=== PATIENT | male | born 1995 | race Hispanic/Latino ===

== ENCOUNTER 2019-08-27 18:48 | Inpatient (IN) | payer MEDICARE ==
[~2019-08-27] VITALS: Ht 152.4 cm; Wt 53.0 kg
[2019-08-27 19:12] LABS: APPEARANCE,URINE Clear (CLEAR); BILIRUBIN,URINE Negative (NEGATIVE); COLOR,URINE Yellow (YELLOW); GLUCOSE, URINE (UA) Negative (NEGATIVE); KETONES,URINE Trace mg/dL (NEGATIVE); LEUKOCYTE ESTERASE ,URINE Negative (NEGATIVE); NITRATE,URINE Negative (NEGATIVE); OCCULT BLOOD,URINE Negative (NEGATIVE); PROTEIN,URINE Negative (NEGATIVE)
[2019-08-27] MEDS ORDERED: LIDOCAINE HCL 2% VISCOUS 15 ML UDCUP ONE (20:08)
[2019-08-27] MEDS ORDERED: FAMOTIDINE/PF 20 MG/2 ML VIAL IV ONE (20:08)
[2019-08-27] MEDS ORDERED: MAG HYDROX/AL HYDROX/SIMETH ES 30 ML SUSP UDCUP ONE (20:08)
[2019-08-27 20:48] LABS: BASOPHILS % (AUTO) 0.2 % (0.0-5.0); EOSINOPHILS % (AUTO) 0.1 % (0.0-8.0); LYMPHOCYTES % (AUTO) 9.9 % (21.0-51.0); MEAN CORPUSCULAR HEMOGLOBIN 32.5 pg (27.0-33.0); MEAN CORPUSCULAR HGB CONC 34.5 g/dL (32.0-36.0); MEAN CORPUSCULAR VOLUME 94.3 fL (79-99); MONOCYTES % (AUTO) 5.5 % (3.0-13.0); PLATELET COUNT (AUTO) 159 K/uL (130-400); RED BLOOD CELL COUNT(AUTO) 5.41 MIL/uL (4.50-6.20); RED CELL DISTRIBUTION WIDTH 12.5 % (11.0-15.5); WHITE BLOOD COUNT (AUTO) 11.8 K/uL (4.8-10.8)
[2019-08-27 20:59] LABS: CREATININE 1.2 mg/dL (0.5-1.5); POTASSIUM 3.4 mmol/L (3.5-5.1)
[2019-08-27 21:04] LABS: ALBUMIN 4.6 g/dL (3.5-5.0); BILIRUBIN,TOTAL 0.9 mg/dL (0.2-1.0); TOTAL PROTEIN, SERUM 8.4 g/dL (6.0-8.3)
[2019-08-27] MEDS ORDERED: ONDANSETRON HCL 4 MG/2 ML VIAL ONE (21:46)
[2019-08-27] MEDS ORDERED: MORPHINE SULFATE 4 MG/1ML SYG ONE (21:47)
[2019-08-27] MEDS ORDERED: IOHEXOL-350 75 ML VIAL IV ONE (22:00)
[2019-08-28] VITALS (7 sets, daily range): BP systolic 112–133; BP diastolic 59–87
[2019-08-28] MEDS: LACTATED RINGERS 1000ML 1,000 ML IV SCH ×4 (00:30→23:30)
[2019-08-28] MEDS ORDERED: LACTATED RINGERS 1000ML IV SCH (00:30)
[2019-08-28] MEDS ORDERED: NITROGLYCERIN 0.4 MG SL TAB SL PRN (00:45)
[2019-08-28] MEDS ORDERED: POTASSIUM CHLORIDE 10MEQ/100ML 10 MEQ/100 ML ML IV SCH (00:45)
[2019-08-28] MEDS ORDERED: DIPHENHYDRAMINE HCL 25 MG CAPSULE PO PRN (00:45)
[2019-08-28] MEDS ORDERED: ACETAMINOPHEN 325 MG TAB PO PRN ×2 (00:45)
[2019-08-28] MEDS ORDERED: POTASSIUM CHLORIDE 10MEQ/100ML 100 ML IV ONE (01:19)
[2019-08-28] MEDS ORDERED: LACTATED RINGERS 1000ML 1,000 ML IV ONE ×2 (02:18→03:26)
--- NOTE | 2019-08-28 02:24 | NUR ---
ADMIT PT ADMITTED TO ROOM 305, AA AND CONVERSANT, ORIENTED. PT HAS DOWN'S SYNDROME. MOTHER WILL BE STAYING WITH PT. ADMISSION CARE DONE. ADMISSION DATA BASE COMPLETED BY MILTON FERRELL, PT'S MOTHER IS [place] SPEAKING ONLY. STARTED ON IVF OF LR BOLUS DRIP. CONTINUED POTASSIUM IV FROM ER. IN FOR MORE CARE AND MANAGEMENT. Addendum: 08/28/19 at 0342 by MAKI SAN RN RN Amended: Links added.
[2019-08-28] MEDS ORDERED: PHOS118S25 PO (02:45)
[2019-08-28] MEDS ORDERED: ENAL5TAB PO (02:45)
[2019-08-28] MEDS ORDERED: PSYL660P17 PO (02:45)
--- NOTE | 2019-08-28 05:00 | NUR ---
SCAN AWAKENED PT AND PT'S MOTHER. EXPLAINED THAT BLADDER SCAN WILL BE DONE. SCANNED 541CC ON MACHINE. EXPLAINED THAT PT NEEDED TO URINATE. PT'S MOTHER ASSISTED PT AND USED THE URINAL. PT URINATED 500CC. VHIC, WOOL GRADER CALLED AND REPORTED FINDING OF BLADDER SCAN.
[2019-08-28 06:05] LABS: HEMATOCRIT 46.1 % (42-54); MEAN CORPUSCULAR HEMOGLOBIN 32.2 pg (27.0-33.0); MEAN CORPUSCULAR HGB CONC 34.1 g/dL (32.0-36.0); MEAN CORPUSCULAR VOLUME 94.7 fL (79-99); PLATELET COUNT (AUTO) 141 K/uL (130-400); RED BLOOD CELL COUNT(AUTO) 4.87 MIL/uL (4.50-6.20); RED CELL DISTRIBUTION WIDTH 12.5 % (11.0-15.5); WHITE BLOOD COUNT (AUTO) 5.6 K/uL (4.8-10.8)
[2019-08-28 06:53] LABS: ALBUMIN 3.6 g/dL (3.5-5.0); BILIRUBIN,TOTAL 0.8 mg/dL (0.2-1.0); MAGNESIUM 1.7 mg/dL (1.80-2.40); POTASSIUM 3.9 mmol/L (3.5-5.1); TOTAL PROTEIN, SERUM 6.8 g/dL (6.0-8.3)
[2019-08-28 08:28] LABS: EOSINOPHILS % (MANUAL) 3 % (1-6); LYMPHOCYTES % (MANUAL) 19 % (22-44); MAN.DIFF COMMENT-IMPRESSION MANUAL DIFFERENTIAL; MONOCYTES % (MANUAL) 4 % (2-9); PLATELET MORPHOLOGY COMMENT ADEQUATE; SEGMENTED NEUTROPHILS % 74 % (40-70)
[2019-08-28] MEDS: FAMOTIDINE/PF 20 MG/2 ML VIAL IV SCH ×2 (08:58→20:08)
[2019-08-28] MEDS: ENOXAPARIN SODIUM 30 MG/0.3 ML SQ SCH (09:03)
--- NOTE | 2019-08-28 09:17 | NUR ---
CHART CHECK COMPLETED. Pt IS A 24 Y.O. MALE ADMITTED SECONDARY TO ACUTE PANCREATITIS. 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 Pt CURRENTLY NPO DUE TO ADMITTING DIAGNOSIS. PLEASE REQUEST FORMAL SWALLOW EVALUATION IF Pt PRESENTS WITH +S/S OF ASPIRATION SUCH COUGHING, CHOCKING, THROAT CLEAR, WET VOCAL QUALITY DURING MEAL TIMES. -ADMISSION CHART CHECK COMPLETED. Addendum: 08/28/19 at 0922 by TAMI RUDD [facility] Amended: Links added.
--- NOTE | 2019-08-28 17:00 | NUR ---
MET W PATIENT AND MOM AT BEDSIDE FOR DC PLANNING PATIENT LIVES WITH PARENTS, NEEDS ASSISTANCE W ADLS SECOND TO DOWN SYNDROME, IS MOBILE WITHOUT ANY DME, HAS PROVIDER SERVICES 3 HRS/DAY. DCP IS HOME Addendum: 08/28/19 at 1702 by MARY EATON RN CM Amended: Links added.
[2019-08-28] MEDS ORDERED: MAGNESIUM 2GM PREMIX 50ML 50 ML IV SCH (18:30)
--- NOTE | 2019-08-28 20:10 | NUR ---
MEDS PT RESTING IN BED. SHIFT ASSESSMENT DONE, PLEASE REFER TO CHART. DUE MEDS ADMINISTERED, TOLERATED WELL. KEPT RESTED AND COMFORTABLE. PT'S MOTHER AT BEDSIDE IN ATTENDANCE TO NEEDS AT THIS TIME. WILL CONTINUE TO MONITOR. Addendum: 08/28/19 at 2241 by MAKI SAN RN RN Amended: Links added.
--- NOTE | 2019-08-28 22:20 | NUR ---
SHOWER PT JUST HAD HIS SHOWER, TOLERATED ACTIVITY WELL. LAB CALLED AND INFORMED ORGAN GRINDER OF PENDING UDS. URINE COLLECTED THEN SENT TO LAB FOR ANALYSIS. PLACED PT BACK ON IVF. WILL MONITOR PT.
[2019-08-28 22:33] LABS: APPEARANCE,URINE Clear (CLEAR); BILIRUBIN,URINE Negative (NEGATIVE); COLOR,URINE Yellow (YELLOW); GLUCOSE, URINE (UA) Negative (NEGATIVE); KETONES,URINE 40 mg/dL (NEGATIVE); LEUKOCYTE ESTERASE ,URINE Negative (NEGATIVE); NITRATE,URINE Negative (NEGATIVE); OCCULT BLOOD,URINE Negative (NEGATIVE); PH,URINE 6.5 (5.0-8.0); PROTEIN,URINE Negative (NEGATIVE); UROBILINOGEN,URINE 0.2 mg/dL (0.2-1.0)
[2019-08-28 22:40] LABS: AMPHET/METH SCREEN,URINE NEGATIVE (NEGATIVE); BARBITURATE SCREEN, URINE NEGATIVE (NEGATIVE); BENZODIAZEPINES SCREEN,URINE NEGATIVE (NEGATIVE); CANNABINOID SCREEN,URINE NEGATIVE (NEGATIVE); COCAINE SCREEN,URINE NEGATIVE (NEGATIVE); OPIATE SCREEN,URINE NEGATIVE (NEGATIVE); PHENCYCLIDINE SCREEN,URINE NEGATIVE (NEGATIVE)
--- NOTE | 2019-08-29 02:00 | NUR ---
ROUNDS PT FAIRLY ASLEEP WITH RESPIRATIONS EVEN AND UNLABORED. NO NOTED DISTRESS. KEPT UNDISTURBED FOR NOW. WILL MONITOR PT. PT'S MOTHER ASLEEP AT BEDSIDE.
[2019-08-29 04:00] VITALS: BP 120/62
[2019-08-29] MEDS: LACTATED RINGERS 1000ML 1,000 ML IV SCH ×2 (04:26→09:37)
--- NOTE | 2019-08-29 05:07 | NUR ---
VINCENT CROCKER GAVE PT A BED BATH, TOLERATED ACTIVITY WELL. SALES MANAGEMENT INTERN IN TO DRAW BLOOD. PT VERY COOPERATIVE AT THIS TIME. STILL NO BM UP TO NOW DESPITE LACTULOSE GIVEN LAST NIGHT. FOR MORE CARE. Addendum: 08/29/19 at 0511 by MAKI SAN RN RN ERROR ENTRY
--- NOTE | 2019-08-29 05:11 | NUR ---
ROUNDS PT RESTING WELL, SLEPT AT LONG INTERVALS. NO DISTRESS NOTED. NO COMPLAINTS VERBALIZED. KEPT COMFORTABLE. FOR MORE CARE.
[2019-08-29 05:58] LABS: BASOPHILS % (AUTO) 0.4 % (0.0-5.0); EOSINOPHILS % (AUTO) 0.8 % (0.0-8.0); HEMATOCRIT 47.2 % (42-54); LYMPHOCYTES % (AUTO) 14.8 % (21.0-51.0); MEAN CORPUSCULAR HGB CONC 34.7 g/dL (32.0-36.0); MONOCYTES % (AUTO) 8.3 % (3.0-13.0); NEUTROPHILS % (AUTO) 75.5 % (40.0-77.0); PLATELET COUNT (AUTO) 152 K/uL (130-400); RED BLOOD CELL COUNT(AUTO) 4.97 MIL/uL (4.50-6.20); RED CELL DISTRIBUTION WIDTH 12.3 % (11.0-15.5); WHITE BLOOD COUNT (AUTO) 5.1 K/uL (4.8-10.8)
[2019-08-29 06:41] LABS: ALBUMIN 3.8 g/dL (3.5-5.0); BILIRUBIN,TOTAL 1.3 mg/dL (0.2-1.0); CREATININE 0.9 mg/dL (0.5-1.5); MAGNESIUM 2.2 mg/dL (1.80-2.40); POTASSIUM 3.6 mmol/L (3.5-5.1)
[2019-08-29 07:14] LABS: HEPATITIS A ANTIBODY IGM Negative (Negative); HEPATITIS B CORE IGM Negative (Negative); HEPATITIS Bs ANTIGEN SCREEN P Negative (Negative)
[2019-08-29 08:00] VITALS: BP_SYST 103; BP_SYST 133; BP_DIAS 62; BP_DIAS 75
[2019-08-29] MEDS ORDERED: LIDOCAINE HCL-MPF 1% 2ML VIAL IV PRN ×2 (08:30)
[2019-08-29] MEDS ORDERED: POTASSIUM CHLORIDE 20MEQ/100ML 100 ML IV PRN ×2 (08:30)
[2019-08-29] MEDS ORDERED: POTASSIUM CHLORIDE 10% ELIXIR 20 MEQ/15 ML UDCUP PO PRN (08:30)
--- NOTE | 2019-08-29 08:47 | NUR ---
Called Derrell Chambers CRNA again regarding discontinuing epidural, Left message on mobile. Addendum: 08/29/19 at 0849 by SERVANDO WILLIAM RN RN Please disregard, wrong patient.
[2019-08-29] MEDS: POTASSIUM CHLORIDE 20 MEQ ERTAB PO PRN ×2 (09:36→11:19)
[2019-08-29] MEDS: FAMOTIDINE/PF 20 MG/2 ML VIAL IV SCH ×2 (09:36→21:17)
[2019-08-29] MEDS: ENOXAPARIN SODIUM 30 MG/0.3 ML SQ SCH (09:37)
[2019-08-29 11:00] VITALS: BP 130/72
[2019-08-29 16:00] VITALS: BP 132/76
--- NOTE | 2019-08-29 21:20 | NUR ---
NAUSEA PT AND PT'S MOM REPORT THE PT IS NAUSEOUS AFTER PT ATE DINNER. C/O PIN TO RIGHT UQ. WILL PROVIDE APPROPRIATE MEDICATIONS PER MAR. PT'S MOM AT BEDSIDE WITH PT. CALL LIGHT ON BEDSIDE TABLE WITHIN REACH.
[2019-08-29] MEDS: HYDROMORPHONE 1 MG/1 ML AMP IV PRN (21:24)
[2019-08-29] MEDS: ONDANSETRON HCL 4 MG/2 ML VIAL IV PRN (21:29)
--- NOTE | 2019-08-29 22:00 | NUR ---
ROUNDS PT ASLEEP IN BED. PT'S MOTHER AT BEDSIDE REPORTS PT CALMED DOWN AND FELL ASLEEP. OBSERVED RISE AND FALL OF CHEST. EVEN, UNLABORED RESPIRATIONS. BED LOCKED AND IN LOWEST POSITION. WILL CONTINUE TO MONITOR.
[2019-08-30] VITALS (7 sets, daily range): BP systolic 92–128; BP diastolic 53–71
[2019-08-30 05:38] LABS: BASOPHILS % (AUTO) 0.6 % (0.0-5.0); EOSINOPHILS % (AUTO) 1.2 % (0.0-8.0); HEMATOCRIT 46.8 % (42-54); LYMPHOCYTES % (AUTO) 15.8 % (21.0-51.0); MEAN CORPUSCULAR HEMOGLOBIN 32.7 pg (27.0-33.0); MEAN CORPUSCULAR HGB CONC 34.6 g/dL (32.0-36.0); MEAN CORPUSCULAR VOLUME 94.4 fL (79-99); MONOCYTES % (AUTO) 7.1 % (3.0-13.0); NEUTROPHILS % (AUTO) 74.9 % (40.0-77.0); PLATELET COUNT (AUTO) 162 K/uL (130-400); RED BLOOD CELL COUNT(AUTO) 4.96 MIL/uL (4.50-6.20); RED CELL DISTRIBUTION WIDTH 12.3 % (11.0-15.5); WHITE BLOOD COUNT (AUTO) 5.2 K/uL (4.8-10.8)
[2019-08-30 05:52] LABS: ALBUMIN 3.7 g/dL (3.5-5.0); BILIRUBIN,TOTAL 0.8 mg/dL (0.2-1.0); POTASSIUM 3.6 mmol/L (3.5-5.1); TOTAL PROTEIN, SERUM 6.8 g/dL (6.0-8.3)
[2019-08-30] MEDS: FAMOTIDINE/PF 20 MG/2 ML VIAL IV SCH ×2 (10:18→20:18)
[2019-08-30] MEDS: HYDROMORPHONE 1 MG/1 ML AMP IV PRN (14:20)
[2019-08-30] MEDS: ONDANSETRON HCL 4 MG/2 ML VIAL IV PRN (20:18)
[2019-08-31] VITALS (25 sets, daily range): BP systolic 81–136; BP diastolic 50–87
[2019-08-31 05:24] LABS: BASOPHILS % (AUTO) 0.5 % (0.0-5.0); EOSINOPHILS % (AUTO) 1.7 % (0.0-8.0); HEMATOCRIT 47.4 % (42-54); LYMPHOCYTES % (AUTO) 20.4 % (21.0-51.0); MEAN CORPUSCULAR HEMOGLOBIN 32.4 pg (27.0-33.0); MEAN CORPUSCULAR HGB CONC 34.6 g/dL (32.0-36.0); MEAN CORPUSCULAR VOLUME 93.7 fL (79-99); MONOCYTES % (AUTO) 7.9 % (3.0-13.0); NEUTROPHILS % (AUTO) 69.5 % (40.0-77.0); PLATELET COUNT (AUTO) 152 K/uL (130-400); RED BLOOD CELL COUNT(AUTO) 5.06 MIL/uL (4.50-6.20); RED CELL DISTRIBUTION WIDTH 12.4 % (11.0-15.5); WHITE BLOOD COUNT (AUTO) 4.1 K/uL (4.8-10.8)
[2019-08-31 05:49] LABS: ALBUMIN 3.6 g/dL (3.5-5.0); BILIRUBIN,TOTAL 0.8 mg/dL (0.2-1.0); POTASSIUM 3.9 mmol/L (3.5-5.1); TOTAL PROTEIN, SERUM 6.9 g/dL (6.0-8.3)
[2019-08-31] MEDS: FAMOTIDINE/PF 20 MG/2 ML VIAL IV SCH ×2 (09:49→21:47)
[2019-08-31] MEDS ORDERED: IOHEXOL-350 50ML VIAL IV ONE (10:34)
[2019-08-31] MEDS ORDERED: PROPOFOL 10 MG/ML 20ML VIAL IV ONE (11:50)
[2019-08-31] MEDS ORDERED: FENTANYL CITRATE PF 50 MCG/1 ML 2ML VIAL ONE (11:51)
[2019-08-31] MEDS ORDERED: MIDAZOLAM HCL 1 MG/ML 2ML VIAL ONE (11:51)
[2019-08-31] MEDS ORDERED: INDOMETHACIN 50 MG SUPP.RECT RC SCH (12:30)
[2019-08-31] MEDS: ONDANSETRON HCL 4 MG/2 ML VIAL IV PRN (14:54)
[2019-08-31] MEDS: LACTATED RINGERS 1000ML 1,000 ML IV SCH (14:55)
[2019-09-01] VITALS (7 sets, daily range): BP systolic 96–116; BP diastolic 51–74
[2019-09-01] MEDS: LACTATED RINGERS 1000ML 1,000 ML IV SCH ×3 (05:47→19:30)
[2019-09-01 05:51] LABS: BASOPHILS % (AUTO) 0.8 % (0.0-5.0); EOSINOPHILS % (AUTO) 1.1 % (0.0-8.0); HEMATOCRIT 45.8 % (42-54); LYMPHOCYTES % (AUTO) 26.2 % (21.0-51.0); MEAN CORPUSCULAR HEMOGLOBIN 33.1 pg (27.0-33.0); MEAN CORPUSCULAR HGB CONC 35.4 g/dL (32.0-36.0); MEAN CORPUSCULAR VOLUME 93.5 fL (79-99); MONOCYTES % (AUTO) 6.1 % (3.0-13.0); NEUTROPHILS % (AUTO) 65.5 % (40.0-77.0); PLATELET COUNT (AUTO) 148 K/uL (130-400); WHITE BLOOD COUNT (AUTO) 3.7 K/uL (4.8-10.8)
[2019-09-01] MEDS: HYDROMORPHONE 1 MG/1 ML AMP IV PRN (05:53)
[2019-09-01] MEDS: ONDANSETRON HCL 4 MG/2 ML VIAL IV PRN (05:53)
[2019-09-01 06:20] LABS: ALBUMIN 3.5 g/dL (3.5-5.0); BILIRUBIN,TOTAL 1.2 mg/dL (0.2-1.0); POTASSIUM 3.7 mmol/L (3.5-5.1); TOTAL PROTEIN, SERUM 6.4 g/dL (6.0-8.3)
[2019-09-01] MEDS: FAMOTIDINE/PF 20 MG/2 ML VIAL IV SCH ×2 (10:14→20:23)
[2019-09-02 03:41] VITALS: BP 112/70
[2019-09-02 05:32] LABS: BASOPHILS % (AUTO) 0.9 % (0.0-5.0); HEMATOCRIT 46.9 % (42-54); LYMPHOCYTES % (AUTO) 29.7 % (21.0-51.0); MEAN CORPUSCULAR HEMOGLOBIN 32.1 pg (27.0-33.0); MEAN CORPUSCULAR HGB CONC 34.3 g/dL (32.0-36.0); MEAN CORPUSCULAR VOLUME 93.6 fL (79-99); MONOCYTES % (AUTO) 8.4 % (3.0-13.0); PLATELET COUNT (AUTO) 150 K/uL (130-400); RED BLOOD CELL COUNT(AUTO) 5.01 MIL/uL (4.50-6.20); RED CELL DISTRIBUTION WIDTH 12.3 % (11.0-15.5); WHITE BLOOD COUNT (AUTO) 3.4 K/uL (4.8-10.8)
[2019-09-02 06:00] LABS: ALBUMIN 3.7 g/dL (3.5-5.0); BILIRUBIN,TOTAL 0.9 mg/dL (0.2-1.0); CREATININE 1.1 mg/dL (0.5-1.5); POTASSIUM 4.1 mmol/L (3.5-5.1)
[2019-09-02 08:50] VITALS: BP 95/69
[2019-09-02] MEDS: FAMOTIDINE/PF 20 MG/2 ML VIAL IV SCH (10:56)
[2019-09-02 11:50] VITALS: BP 122/57
== END 2019-09-02 15:30 | disposition home or self-care (01) | DRG 439 ==
LOC: EDH 18:48 → EDHIP 08-28 → 3BH 08-28 02:16
PROVIDERS: ADMIT Family Medicine; ATTEND Family Medicine
PROC: 0FJD8ZZ Inspection of Pancreatic Duct, Via Natural or Artificial Opening Endoscopic (ICD-10-PCS; principal; 2019-08-31)
DX: K85.90 Acute pancreatitis without necrosis or infection, unspecified (principal); B17.9 Acute viral hepatitis, unspecified; F79 Unspecified intellectual disabilities; K80.50 Calculus of bile duct without cholangitis or cholecystitis without obstruction; K52.9 Noninfective gastroenteritis and colitis, unspecified; R33.9 Retention of urine, unspecified; E87.6 Hypokalemia; Q90.9 Down syndrome, unspecified; B96.89 Other specified bacterial agents as the cause of diseases classified elsewhere; K76.0 Fatty (change of) liver, not elsewhere classified; K42.9 Umbilical hernia without obstruction or gangrene; Z82.49 Family history of ischemic heart disease and other diseases of the circulatory system; Z83.49 Family history of other endocrine, nutritional and metabolic diseases; Z88.0 Allergy status to penicillin; Z90.49 Acquired absence of other specified parts of digestive tract
CPT/HCPCS: 36415; 43260; 74177; 74181; 74329; 74330; 76705; 80053; 80061; 80074; 80305; 81003; 82150; 83690; 83735; 84478; 85025; 87040; 87077; 87186; 93005; 99291; A4606; C1769; G0378; J1170; J1650; J2250; J2270; J2405; J2704; J3010; J3475; J3480; J3490; J7030; J7120; Q9967

== ENCOUNTER → 2022-12-08 | Outpatient (CLI) | payer MEDICARE ==
[~2022-12-08] MED LIST: ENAL-87 PO; PHOS118S25 PO; PSYL660P17 PO
== END | disposition home or self-care (01) ==
LOC: SHCH 09:25
PROVIDERS: ATTEND Student in an Organized Health Care Education/Training Program
DX: I08.2 Rheumatic disorders of both aortic and tricuspid valves (principal); R94.31 Abnormal electrocardiogram [ECG] [EKG]
CPT/HCPCS: 93306